=== PATIENT | female | born 1990 | race African-American/Black ===

== ENCOUNTER 2018-05-23 11:47 | Inpatient (IN) ==
[2018-05-23 12:17] LABS: Apearance,Urine CLEAR (Clear); Bacteria,Urine Occasional /HPF (Few); Bilirubin,Urine Negative (Negative); Blood, Urine Small mg/dL (Negative); Glucose,Urine (UA) Negative (Negative); Ketones,Urine Negative (Negative); Nitrite,Urine Negative (Negative); Protein,Urine 100 MG/DL; RBC,Urine <1 /HPF (0-4); Squamous Epithelial Cell,Urine Occasional /HPF (0-10); Urine Color Straw (Yellow); Urine Specific Gravity 1.003 (1.001-1.035); Urine Urobilinogen < 2.0 EU/DL (0.2-1.0); WBC,Urine 1 /HPF (0-6)
[2018-05-23 12:25] LABS: Basophils % 0.2 % (0.0-0.8); Eosinophils # 0.1 10*3/uL (0.0-0.87); Eosinophils % 0.6 % (0.00-10.9); Hematocrit 34.1 VOL% (35.7-47.0); Hemoglobin 11.4 GM/DL (12.0-16.0); Immature Granulocytes % 0.5 %; Immature Granulocytes Absolute 0.04 #; Lymphocytes % 11.8 % (21.3-54.2); Mean Corpuscular HGB Conc 33.4 GM/DL (32-36); Mean Corpuscular Hemoglobin 30 PG (27-34); Mean Corpuscular Volume 89.7 FL (87-102); Mean Platelet Volume 13.8 FL (9.6-12.0); Monocytes # 0.9 10*3/uL (0.11-0.8); Monocytes % 9.9 % (1.7-12.7); Neutrophils # 6.8 10*3/uL (1.4-7.4); Platelet Count 130 T/CUMM (130-400); Red Cell Distribution Width 13.8 % (9.3-17.3); White Blood Count 8.9 T/CUMM (4-12)
[2018-05-23 12:47] LABS: INR 0.9; PT Patient Result 9.4 SECS; Partial Thromboplastin Time 24.7 SECS (0-40)
[2018-05-23 13:02] LABS: Albumin 2.2 G/DL (3.4-5.0); Bilirubin,Total 0.4 MG/DL (0.2-1.0); Calcium 8.8 MG/DL (8.5-10.1); Osmolality,Calculated 277.3 MOS/KG (273-304); Potassium 3.7 MMOL/L (3.5-5.1); Total Protein 6.4 G/DL (6.4-8.3); Uric Acid 6.7 MG/DL (2.6-6.0)
[2018-05-23] MEDS ORDERED: LABETALOL 100 MG TABLET PO ONE (13:57)
[2018-05-23] MEDS ORDERED: ONDANSETRON 4 MG/2 ML VIAL IV PRN (17:48)
[2018-05-23] MEDS ORDERED: MEPERIDINE 50 MG/1 ML VIAL IV PRN (17:48)
[2018-05-23] MEDS ORDERED: hydrALAZINE 20 MG/1 ML VIAL IV ONE (17:51)
[2018-05-23] MEDS ORDERED: hydrALAZINE 20 MG/1 ML VIAL ONE (17:56)
[2018-05-23] MEDS ORDERED: LABETALOL 200 MG TABLET PO SCH (21:00)
[2018-05-24] MEDS ORDERED: LACTATED RINGERS 1,000 ML IV ONE (06:31)
[2018-05-24] MEDS ORDERED: CITRIC ACID/SODIUM CITRATE 30 ML UDCUP PO ONE (06:34)
[2018-05-24] MEDS ORDERED: FAMOTIDINE 20 MG/2 ML VIAL IV ONE (06:34)
[2018-05-24] MEDS ORDERED: OXYTOCIN 10 UNIT/ML VIAL IM ONE (06:41)
[2018-05-24] MEDS ORDERED: OXYTOCIN/LR 30 UNIT/1,000 ML BAG IV ONE (07:50)
[2018-05-24] MEDS ORDERED: ceFAZolin 3,000 MG in SYRINGE 1 EACH IV ONE (08:00)
[2018-05-24] MEDS ORDERED: FUROSEMIDE 40 MG/4 ML VIAL IV ONE ×2 (09:26→18:00)
[2018-05-24] MEDS ORDERED: ONDANSETRON 4 MG/2 ML VIAL IV PRN (09:47)
[2018-05-24] MEDS ORDERED: OXYTOCIN/LR 20 UNIT/1,000 ML BAG IV ONE (09:47)
[2018-05-24] MEDS ORDERED: IBUPROFEN 800 MG TABLET PO PRN (09:47)
[2018-05-24] MEDS ORDERED: SIMETHICONE CHEW 80 MG TABLET PO PRN (09:47)
[2018-05-24] MEDS ORDERED: ACETAMINOPHEN 325 MG TABLET PO PRN (09:47)
[2018-05-24] MEDS ORDERED: RHO(D) IMMUNE GLOBULIN 300 MCG SYRINGE IM ONE (09:47)
[2018-05-24] MEDS ORDERED: fentaNYL 100 MCG/2 ML VIAL ONE (09:50)
[2018-05-24] MEDS ORDERED: BUPIVACAINE SPINAL 0.75% 2 ML AMP SPINAL ONE (09:52)
[2018-05-24] MEDS ORDERED: LACTATED RINGERS 1,000 ML IV SCH (10:00)
[2018-05-24] MEDS ORDERED: ceFAZolin 1,000 MG in SYRINGE 1 EACH IV SCH (10:00)
[2018-05-24 10:01] LABS: Cord Arterial Blood HCO3 21.2 MMOL/L
[2018-05-24 10:03] LABS: Cord Venous Blood HCO3 26.6 MMOL/L; Cord Venous Blood PCO2 55.4 MMHG; Cord Venous Blood PO2 27.1 MMHG
[2018-05-24] MEDS ORDERED: FUROSEMIDE 20 MG/2 ML VIAL ONE (10:05)
[2018-05-24] MEDS ORDERED: PHENYLEPHRINE 1 MG/10 ML SYRINGE IV ONE (10:05)
[2018-05-24] MEDS ORDERED: ACETAMINOPHEN 1,000 MG/100 ML VIAL IV ONE (10:05)
[2018-05-24 11:16] LABS: Apearance,Urine CLEAR (Clear); Bilirubin,Urine Negative (Negative); Blood, Urine Small mg/dL (Negative); Glucose,Urine (UA) Negative (Negative); Ketones,Urine 5 mg/dL (Negative); Nitrite,Urine Negative (Negative); Protein,Urine 100 MG/DL; RBC,Urine 5 /HPF (0-4); Urine Color Straw (Yellow); Urine Specific Gravity 1.008 (1.001-1.035); Urine Urobilinogen < 2.0 EU/DL (0.2-1.0); WBC,Urine 1 /HPF (0-6)
[2018-05-24] MEDS ORDERED: diphenhydrAMINE 50 MG/1 ML VIAL IV PRN (15:42)
[2018-05-24] MEDS ORDERED: MEPERIDINE 50 MG/1 ML VIAL IV PRN (16:11)
[2018-05-24] MEDS ORDERED: HYDROmorphone 2 MG/1 ML VIAL ONE (16:16)
[2018-05-24] MEDS: HYDROmorphone 2 MG/1 ML VIAL IV PRN ×2 (16:19→18:55)
[2018-05-24] MEDS: ceFAZolin 1,000 MG in SYRINGE 1 EACH IV SCH (16:45)
[2018-05-24 17:25] LABS: Basophils % 0.2 % (0.0-0.8); Eosinophils % 0.3 % (0.00-10.9); Hematocrit 33.9 VOL% (35.7-47.0); Hemoglobin 11.4 GM/DL (12.0-16.0); Immature Granulocytes % 0.3 %; Immature Granulocytes Absolute 0.04 #; Lymphocytes # 1.3 10*3/uL (1.4-4.0); Lymphocytes % 10.5 % (21.3-54.2); Mean Corpuscular HGB Conc 33.6 GM/DL (32-36); Mean Corpuscular Hemoglobin 30 PG (27-34); Mean Corpuscular Volume 88.5 FL (87-102); Mean Platelet Volume 13.9 FL (9.6-12.0); Monocytes # 1.1 10*3/uL (0.11-0.8); Monocytes % 8.7 % (1.7-12.7); Neutrophils # 9.7 10*3/uL (1.4-7.4); Platelet Count 109 T/CUMM (130-400); Red Blood Count 3.83 MC/CUMM (3.8-5.5); Red Cell Distribution Width 14.3 % (9.3-17.3); White Blood Count 12.1 T/CUMM (4-12)
[2018-05-24] MEDS: DOCUSATE SODIUM 100 MG CAPSULE PO SCH (20:15)
[2018-05-24] MEDS: POTASSIUM CHLORIDE 20 MEQ TABLET PO SCH (20:34)
[2018-05-25] MEDS: ceFAZolin 1,000 MG in SYRINGE 1 EACH IV SCH (01:10)
[2018-05-25 06:44] LABS: Basophils % 0.4 % (0.0-0.8); Eosinophils # 0.1 10*3/uL (0.0-0.87); Eosinophils % 0.7 % (0.00-10.9); Hematocrit 32.5 VOL% (35.7-47.0); Hemoglobin 10.8 GM/DL (12.0-16.0); Immature Granulocytes % 0.5 %; Immature Granulocytes Absolute 0.05 #; Lymphocytes # 1.4 10*3/uL (1.4-4.0); Lymphocytes % 13.2 % (21.3-54.2); Mean Corpuscular HGB Conc 33.2 GM/DL (32-36); Mean Corpuscular Hemoglobin 30 PG (27-34); Mean Corpuscular Volume 90.5 FL (87-102); Mean Platelet Volume 14.7 FL (9.6-12.0); Monocytes # 1.1 10*3/uL (0.11-0.8); Monocytes % 10.1 % (1.7-12.7); Neutrophils # 8.1 10*3/uL (1.4-7.4); Neutrophils % 75.1 % (38.7-73.9); Platelet Count 111 T/CUMM (130-400); Red Blood Count 3.59 MC/CUMM (3.8-5.5); Red Cell Distribution Width 14.2 % (9.3-17.3); White Blood Count 10.7 T/CUMM (4-12)
[2018-05-25] MEDS: DOCUSATE SODIUM 100 MG CAPSULE PO SCH ×2 (08:57→20:43)
[2018-05-25] MEDS: MULTIVITAMIN (PRENATAL) TABLET PO SCH (08:57)
[2018-05-25] MEDS: POTASSIUM CHLORIDE 20 MEQ TABLET PO SCH ×2 (08:57→20:44)
[2018-05-25] MEDS: MAGNESIUM HYDROXIDE SUSP 30 ML UDCUP PO PRN (20:43)
[2018-05-26 08:55] VITALS: BP 136/81
[2018-05-26] MEDS: MULTIVITAMIN (PRENATAL) TABLET PO SCH (09:06)
[2018-05-26] MEDS: DOCUSATE SODIUM 100 MG CAPSULE PO SCH (09:06)
[2018-05-26] MEDS: MAGNESIUM HYDROXIDE SUSP 30 ML UDCUP PO PRN (09:06)
[2018-05-26] MEDS: POTASSIUM CHLORIDE 20 MEQ TABLET PO SCH (09:06)
== END 2018-05-26 12:20 | disposition home or self-care (01) | DRG 766 ==
LOC: N.LDOUT 11:47 → N.LD 11:49 → N.OB 05-24 16:12
PROVIDERS: ADMIT Obstetrics & Gynecology; ATTEND Obstetrics & Gynecology
PROC: LDCSECT (ICD-10-PCS; 2018-05-24 08:30)